=== PATIENT | female | born 1980 | race Caucasian/White ===

== ENCOUNTER 2016-02-19 19:18 | Emergency (ER) | payer OTHER, MEDICAID ==
[2016-02-19] MEDS ORDERED: methylPREDNISolone 125 MG* 2 ML VIAL IV ONE (19:33)
[2016-02-19] MEDS ORDERED: NS 0.9% 1000 ML* 2,000 ML IV ONE (19:33)
[2016-02-19 20:01] LABS: Hematocrit 41 % (35-47); Hemoglobin 13.8 g/dl (12.0-16.0); Mean Corpuscular HGB Conc 34 g/dl (31-36); Mean Corpuscular Hemoglobin 30 pg (27-31); Mean Corpuscular Volume 88 fL (80-97); Mean Platelet Volume 9 um3 (7.4-10.4); Red Blood Count 4.65 10^6/ul (4.0-5.4); Red Cell Distribution Width 14 % (10.5-15); White Blood Count 8.3 10^3/ul (3.5-10.8)
[2016-02-19] MEDS ORDERED: Albuterol/Ipratropium NEB.SOL* Albuterol 2.5 MG/Ipratropium 0.5 MG 3 ML ONE (20:09)
[2016-02-19] MEDS: Albuterol/Ipratropium NEB.SOL* Albuterol 2.5 MG/Ipratropium 0.5 MG 3 ML INH SCH (20:11)
[2016-02-19 20:16] LABS: ALT 42 U/L (7-52); AST 29 U/L (13-39); Albumin 4.2 g/dL (3.2-5.2); Alkaline Phosphatase 86 U/L (34-104); Anion Gap 6 mmol/L (2-11); BUN/Creatinine Ratio 6.6 (8-20); Blood Urea Nitrogen 6 mg/dL (6-24); C Reactive Protein 51.41 mg/L (< 5.00); CO2 Carbon Dioxide 31 mmol/L (22-32); Calcium 9.6 mg/dL (8.6-10.3); Chloride 100 mmol/L (101-111); EGFR Non-African American 70.8 (>60); Globulin 3.5 g/dL (2-4); Glucose 107 mg/dL (70-100); Potassium 4.7 mmol/L (3.5-5.0); Sodium 137 mmol/L (133-145); Total Protein 7.7 g/dL (6.4-8.9)
--- NOTE | 2016-02-19 20:21 | RAD ---
INDICATION: Shortness of breath, cough. History of asthma. Popping sound in chest with coughing. COMPARISON: April 28, 2010 CT. TECHNIQUE: Dual energy PA and routine lateral views of the chest were obtained. REPORT: Mild retrocardiac airspace consolidation without volume loss suspicious for potential pneumonia. Negative for pleural effusion or pneumothorax. The heart, pulmonary vasculature, and mediastinal contours are unremarkable. IMPRESSION: Mild retrocardiac airspace consolidation without volume loss suspicious for potential pneumonia.
[2016-02-19] MEDS ORDERED: Levofloxacin 750 MG IVPREMIX(* 750 MG/150 ML BAG IVPB ONE (20:24)
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
[2016-02-19 23:08] VITALS: BP 110/74
== END 2016-02-19 23:07 | disposition home or self-care (01) ==
LOC: ED 19:18
DX: J18.9 Pneumonia, unspecified organism (principal); J45.901 Unspecified asthma with (acute) exacerbation; R07.9 Chest pain, unspecified; R05 Cough; J02.9 Acute pharyngitis, unspecified
CPT/HCPCS: 36415; 71020; 80053; 83880; 84702; 85025; 86140; 87651; 94640; 96361; 96365; 99282; A9270-GY; J2930

== ENCOUNTER 2016-08-21 16:48 | Emergency (ER) | payer OTHER, MEDICAID ==
[2016-08-21 17:17] VITALS: BP 108/76
[2016-08-21] MEDS ORDERED: Amoxicillin/Clavulanate TAB* 875 MG PO ONE ×2 (17:51→17:52)
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
== END 2016-08-21 18:11 | disposition home or self-care (01) ==
LOC: UCEAST 16:48
DX: L03.115 Cellulitis of right lower limb (principal)
CPT/HCPCS: 99212; A9270-GY; G0463

== ENCOUNTER 2017-08-25 21:05 | Emergency (ER) | payer MEDICAID, OTHER ==
[2017-08-25 21:26] VITALS: BP 127/76
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
[2017-08-25] MEDS ORDERED: Silver Sulfadiazine 1%* 20 GM TOPICAL ONE (21:42)
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
== END 2017-08-25 22:09 | disposition home or self-care (01) ==
LOC: UCEAST 21:05
DX: T23.162A Burn of first degree of back of left hand, initial encounter (principal); T22.112A Burn of first degree of left forearm, initial encounter; M54.2 Cervicalgia; J45.909 Unspecified asthma, uncomplicated; Z88.1 Allergy status to other antibiotic agents; Z88.8 Allergy status to other drugs, medicaments and biological substances; V59.49XA Driver of pick-up truck or van injured in collision with other motor vehicles in traffic accident, initial encounter; X08.8XXA Exposure to other specified smoke, fire and flames, initial encounter; Y93.89 Activity, other specified; Y92.89 Other specified places as the place of occurrence of the external cause
CPT/HCPCS: 16000; 72050; 99213; A9270-GY; G0463

== ENCOUNTER 2017-09-01 09:29 | Emergency (ER) | payer OTHER ==
[2017-09-01 09:39] VITALS: BP 100/67
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
== END 2017-09-01 11:14 | disposition home or self-care (01) ==
LOC: UCEAST 09:29
DX: T23.002A Burn of unspecified degree of left hand, unspecified site, initial encounter (principal); W22.10XA Striking against or struck by unspecified automobile airbag, initial encounter; Y93.9 Activity, unspecified; Y99.9 Unspecified external cause status
CPT/HCPCS: 99211; G0463

== ENCOUNTER 2018-01-26 15:06 | Emergency (ER) | payer BC, OTHER ==
[2018-01-26 16:02] VITALS: BP 98/67
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
== END 2018-01-26 16:45 | disposition home or self-care (01) ==
LOC: UCEAST 15:06
DX: J32.9 Chronic sinusitis, unspecified (principal); Z88.1 Allergy status to other antibiotic agents; Z88.8 Allergy status to other drugs, medicaments and biological substances
CPT/HCPCS: 99212; G0463

== ENCOUNTER 2018-03-19 08:33 | Emergency (ER) | payer BC ==
[2018-03-19 08:45] VITALS: BP 110/73
[2018-03-19] MEDS ORDERED: Ondansetron ODT TAB* 4 MG PO ONE (08:55)
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
[2018-03-19 09:00] LABS: Influenza A Molecular NEGATIVE (Negative); Influenza B Molecular NEGATIVE (Negative)
== END 2018-03-19 09:19 | disposition home or self-care (01) ==
LOC: UCEAST 08:33
DX: R11.2 Nausea with vomiting, unspecified (principal); J11.1 Influenza due to unidentified influenza virus with other respiratory manifestations; M79.10 Myalgia, unspecified site; Z88.1 Allergy status to other antibiotic agents; Z88.8 Allergy status to other drugs, medicaments and biological substances
CPT/HCPCS: 99212; A9270-GY; G0463

== ENCOUNTER 2018-05-05 13:39 | Emergency (ER) | payer BC ==
[2018-05-05 13:49] VITALS: BP 102/69
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
== END 2018-05-05 14:08 | disposition home or self-care (01) ==
LOC: UCEAST 13:39
DX: M77.9 Enthesopathy, unspecified (principal); Z88.8 Allergy status to other drugs, medicaments and biological substances
CPT/HCPCS: 99212; G0463

== ENCOUNTER 2018-06-20 13:26 | Emergency (ER) | payer BC ==
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
[2018-06-20 16:11] VITALS: BP 107/80
== END 2018-06-20 16:00 | disposition home or self-care (01) ==
LOC: UCEAST 13:26
DX: J01.90 Acute sinusitis, unspecified (principal); J02.9 Acute pharyngitis, unspecified; Z88.1 Allergy status to other antibiotic agents; Z88.8 Allergy status to other drugs, medicaments and biological substances
CPT/HCPCS: 87651; 99212; G0463